=== PATIENT | female | born 1955 | race Caucasian/White ===

== ENCOUNTER 2023-07-13 08:54 | Emergency (ER) | payer MEDICARE, SELFPAY ==
[2023-07-13 08:58] VITALS: BP 116/76
--- NOTE | 2023-07-13 09:09 | ED.GENMED ---
History of Present Illness
General
Chief Complaint: Musculo-Skeletal Complaint
Source: patient
Exam Limitations: none
Time Seen by Provider: 07/13/23 09:08
Nursing documentation reviewed up to this point in time: agreed with
Travel History
Have you had any contact with someone who has COVID-19?: No
Do you have any symptoms of coronavirus? Fever > 100 degrees, chills, cough, shortness of breath, sore throat, loss of taste or smell, muscle aches, or headache?: No
History of Present Illness
History of Present Illness:
67-year-old female with no significant past medical history presents stating while at her daughter's house last evening developed intermittent tingling and cold sensation entire left arm with tingling in 5th finger and sometimes in index finger.
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 Denies neck pain, overuse or injury to the arm. Denies chest pain, shortness of breath, abdominal pain,
N/V/D/C. Denies weakness in the arm.
Past History
Past History
ED Past Medical History: None
ED Past Surgical History: Other (Myomectomy, breast implants, chin implant)
Social History
Tobacco: Non-smoker
Alcohol: Occasional
Personal:
Living: with family
Employment: Retired
Review of Systems
Review of Systems
Allergies reviewed?: Yes
All Other Systems: ROS reviewed and negative except as documented in HPI and ROS
Constitutional: Denies fever, fatigue or chills
Respiratory: Denies trouble breathing
Cardiac: Denies chest pain or diaphoresis
ABD/GI: Denies abdominal pain or nausea
: Denies dysuria or difficulty voiding
Musculoskeletal: Reports no symptoms
Neurological: Reports other (tingling sensation and sometimes cold sensation left arm, 5th and middle fingers); Denies dizzy, headache, weakness or numbness
Phy Exam
Physical Exam
Physical Exam:
GENERAL: No acute distress. A&Ox3.
CONSTITUTIONAL: Afebrile.
EYES: PERRL, conjunctivae normal
Neck: Supple
ENMT: moist mucus membranes, Pharynx nl
RESPIRATORY: Regular respirations, nonlabored, lungs clear.
CARDIOVASCULAR: Regular rate and rhythm, no murmurs, no rubs.
GI: Soft, nontender, normal BS
MUSCULOSKELETAL: Neck is nontender. Full range of motion. Extremity exam is normal save for subjective 'tingling and intermittent cold feeling' moves with ease. Well perfused.
SKIN: Warm, dry, pink
PSYCH: Normal mood and affect. Well kept, interactive and appropriate
NEUROLOGIC: Awake, alert and oriented. Strength equal throughout. No focal neurological deficits
Course
Orders/Labs/Results
Orders:
Orders
07/13/23 09:04
Electrocardiogram (*1) Urgent
Reason for Study: Chest Pain
07/13/23 09:05
EKG- Treatment ONCE
07/13/23 09:41
Complete Blood Count/With Diff Urgent
Comprehensive Metabolic Panel Urgent
Troponin I Urgent
Abnormal Lab Results
07/13/23
09:41
WBC 4.7 L 10^3/uL
(4.8-10.8)
MCH 33.5 H pg
(27.0-31.0)
Monocytes % 11.3 H %
(1.7-9.3)
BUN 21 H mg/dl
(7-17)
Glucose 100 H mg/dl
(70-99)
Calcium 10.7 H mg/dl
(8.4-10.2)
07/13/23 09:41
07/13/23 09:41
Vital Signs
Initial and Last Documented VS:
Initial Vital Signs
Temp Pulse BP Pulse Ox
98.2 F 72 116/76 98
07/13/23 08:58 07/13/23 08:58 07/13/23 08:58 07/13/23 08:58
Last Documented Vital Signs
Temp Pulse Resp BP Pulse Ox
98.2 F 70 16 118/74 98
07/13/23 08:58 07/13/23 11:00 07/13/23 11:00 07/13/23 11:00 07/13/23 11:00
MDM/Problems Addressed
Differential Diagnosis Includes:
cervical radiculopathy, [place]
MDM/Problems Addressed:
67-year-old female with no significant past medical history presents stating while at her daughter's house last evening developed intermittent tingling and cold sensation entire left arm with tingling in 5th finger and sometimes in index finger.
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 Denies neck pain, overuse or injury to the arm. Denies chest pain, shortness of breath, abdominal pain,
N/V/D/C. Denies weakness in the arm.
EKG NSR
10:45 AM
CBC normal
CMP with no clinically significant abnormality
Troponin WNL
Pt reassured no indication of cardiac etiology.
Most likely cervical radiculopathy
Plan: NSAIDS, neck exercises, f/u with PCP if symptoms persist beyond 2 weeks.
*Critical Care Note
Total Time (30-74mins, 75-104mins- exclusive of procedures): Not Applicable
ED Attending Note
-
Portions of this chart may have been created with voice recognition software.� Occasional wrong word or��sound alike� substitutions may have occurred due to the inherent limitations of voice recognition software.
Discharge Plan
Departure
Patient Disposition: Home (Routine Discharge)
Date of Disposition: 07/13/23
Time of Disposition: 10:47
Patient with high blood pressure during this ER visit?: No
Condition: Good
Discharge Problem:
Tingling of left upper extremity, Cervical radiculopathy
Instructions: Radiculopathy (DC), Paresthesia (DC), Active Range of Motion Exercises, Neck and Shoulders
Referrals:
Trenton Pisano [Other] - As needed
UNKNOWN - PT DOES,NOT KNOW [Family Provider] -
Activity Restrictions/Additional Instructions:
As we discussed, there is nothing to indicate that your symptoms are originating from your heart, no sign of a heart attack.
This is most likely radicular pain from the neck.
Ibuprofen 600 mg, with food, every 6 hours as needed for inflammation
You may benefit from some physical therapy of the neck, I have provided you with some of those exercises.
See your doctor in 2 weeks if your symptoms persist beyond 2 weeks or if they worsen.
Interventions
Interventions:
*General Assessment Last Done: 07/13/23 09:31
*ED COVID-19 Vaccine History Last Done: 07/13/23 08:58
*Nursing Disposition Last Done: 07/13/23 11:06
Discharge Date and Time
Discharge Date/Time: 07/13/23 11:07
Print Language: [id number]
[2023-07-13 09:31] VITALS: BMI 23.8
[2023-07-13 09:47] LABS: % Basophils 0.9 % (0-2); % Eosinophils 2.8 % (0-6); % Immature Granulocytes 0.2 % (0-0.5); % Monocytes 11.3 % (1.7-9.3); % Neutrophils 53.8 % (42.2-75.2); Absolute Eosinophils 0.1 10^3/uL (0-0.7); Absolute Lymphocytes 1.5 10^3/uL (1.2-3.4); Absolute Monocytes 0.5 10^3/uL (0.1-0.6); Absolute Neutrophils 2.5 10^3/uL (1.4-6.5); Hematocrit 40.5 % (37.0-47.0); Hemoglobin 14.3 g/dL (12.0-16.0); Mean Corp Hgb Conc. 35.3 g/dL (33.0-37.0); Mean Corpuscular Hgb 33.5 pg (27.0-31.0); Mean Corpuscular Volume 94.8 fL (81.0-99.0); Mean Platelet Volume 9.3 fL (7.4-10.4); Nucleated Red Blood Cells % 0 %; Platelet Count 204 10^3/uL (130-400); Red Blood Cell Count 4.27 10^6/uL (4.20-5.40); Red Cell Dist. Width 11.6 % (11.5-14.5); White Blood Cell Count 4.7 10^3/uL (4.8-10.8)
[2023-07-13 10:04] LABS: ALT (SGPT) 17 U/L (0-35); AST (SGOT) 27 U/L (14-36); Albumin 4.7 g/dl (3.5-5.0); Alkaline Phosphatase 66 U/L (38-126); Blood Urea Nitrogen 21 mg/dl (7-17); Calcium 10.7 mg/dl (8.4-10.2); Carbon Dioxide 28 mmol/L (22-30); Chloride 101 mmol/L (98-107); Estimated Creatinine Clearance 44 ml/min; Glucose 100 mg/dl (70-99); Potassium 4.6 mmol/L (3.5-5.1); Sodium 135 mmol/L (135-145); Total Bilirubin 0.8 mg/dl (0.2-1.3); Total Protein 6.9 g/dl (6.3-8.2); eGFR > 60.00
[2023-07-13 10:14] LABS: Troponin I < 0.012 ng/ml
[2023-07-13 11:00] VITALS: BP 118/74
== END 2023-07-13 11:07 | disposition home or self-care (01) ==
LOC: EMR 08:54
PROVIDERS: Registered Nurse; EMERGENCY PHYSICIAN Emergency Medicine
DX: M54.12 Radiculopathy, cervical region (principal)
CPT/HCPCS: 99284; 80053; 84484; 85025; 93005